=== PATIENT | male | born 1970 | race Caucasian/White ===

== ENCOUNTER 2020-07-26 06:54 | Day surgery (SDC) | payer OTHER, SELFPAY ==
[~2020-07-26] VITALS: Ht 175.3 cm; Wt 111.1 kg
[2020-07-26] MEDS ORDERED: fentaNYL citrate 0.05 MG/ML VIAL ONE (08:24)
[2020-07-26] MEDS ORDERED: MIDAZOLAM 2 MG/2 ML VIAL ONE (08:24)
[2020-07-26] MEDS ORDERED: diphenhydrAMINE 50 MG/ML VIAL ONE (08:24)
[2020-07-26] MEDS: MIDAZOLAM 2 MG/2 ML VIAL IVP ONE (08:27)
[2020-07-26] MEDS: fentaNYL citrate 0.05 MG/ML VIAL IVP ONE (08:28)
== END 2020-07-26 09:20 | disposition home or self-care (01) ==
LOC: MOR 06:54 → MFCC 06:56 → MOR 09:20
PROVIDERS: ATTEND Internal Medicine Gastroenterology
DX: K52.9 Noninfective gastroenteritis and colitis, unspecified (principal); K63.5 Polyp of colon; K64.8 Other hemorrhoids; Z80.0 Family history of malignant neoplasm of digestive organs; Z86.73 Personal history of transient ischemic attack (TIA), and cerebral infarction without residual deficits; J44.9 Chronic obstructive pulmonary disease, unspecified; I10 Essential (primary) hypertension; E78.00 Pure hypercholesterolemia, unspecified; G47.30 Sleep apnea, unspecified; E11.9 Type 2 diabetes mellitus without complications; Z79.4 Long term (current) use of insulin; Z79.899 Other long term (current) drug therapy; Z98.890 Other specified postprocedural states; Z20.828 Contact with and (suspected) exposure to other viral communicable diseases
CPT/HCPCS: 45380; 45385; J2250; J3010; U0003; J1200